=== PATIENT | male | born 1955 | race Caucasian/White ===

== ENCOUNTER → 2022-10-27 | Outpatient (CLI) | payer MEDICARE ==
[~2022-10-27] MED LIST: ALLO100T PO; ATOR80TA59 PO; BUSP10TA PO; CIPR750T2 PO; CLOP75TA2 PO; DILT180C70 PO; FLEEENE12 PR; HYDR50TA70 PO; LEXA1TAB2 PO; LISI20TA35 PO; LORA1TAB4 PO; METO1TAB7 PO; OMEP-173 PO; OXYC1TAB23 PO
== END ==
LOC: M ONCR 12:20
PROVIDERS: ATTEND General Practice
DX: C61 Malignant neoplasm of prostate (principal); Z79.82 Long term (current) use of aspirin

== ENCOUNTER → 2022-11-09 | Outpatient (CLI) | payer MEDICARE ==
[~2022-11-09] VITALS: Ht 185.4 cm; Wt 110.5 kg
[~2022-11-09] MED LIST changes: +FLUC100T3 PO; +LIDOCAINE 2% MDV 20ML VIAL SC ONE; +LIDOCAINE 2% MDV 20ML VIAL XX ONE; +LIDOCAINE VISCOUS 2% SOLN 15ML UDC TOP ONE; +LIDOCAINE VISCOUS 2% SOLN 15ML UDC XX ONE
[2022-11-09 13:01] VITALS: BP 149/90
[2022-11-09 13:44] VITALS: BP 152/87
== END ==
LOC: M ONCR 12:47
PROVIDERS: ATTEND General Practice
DX: C61 Malignant neoplasm of prostate (principal)
CPT/HCPCS: 55874; 55876; A4648; C1889